=== PATIENT | male | born 1990 | race African-American/Black ===

== ENCOUNTER 2018-07-29 22:46 | Emergency (ER) | payer SELFPAY ==
--- NOTE | 2018-07-29 23:28 | ER ---
Nurse's Notes [facility] Name: Rigoberto Barker III Age: 28 yrs Sex: Male : 1990 Arrival Date: 07/29/2018 Time: 22:51 Bed 16 Private MD: None, None Diagnosis: Localized swelling, mass and lump of skin and subcutaneous tissue-Left inner thigh Presentation: 07/29 22:59 Presenting complaint: Patient states: Abscess to left inner thigh that has grown since lp1 3 months ago; States pain when touched; Denies any fever. Transition of care: patient was not received from another setting of care. Onset of symptoms was July 29, 2018. Risk Assessment: Do you want to hurt yourself or someone else? Patient reports no desire to harm self or others. Initial Sepsis Screen: Does the patient meet any 2 criteria? No. Patient's initial sepsis screen is negative. Does the patient have a suspected source of infection? No. Patient's initial sepsis screen is negative. Care prior to arrival: None. 22:59 Method Of Arrival: Ambulatory lp1 22:59 Acuity: CARI 4 lp1 Triage Assessment: 23:00 General: Appears in no apparent distress. Behavior is calm, cooperative, appropriate rr5 for age. 23:00 Pain: Denies pain. cc3 Historical: - Allergies: 23:00 Avocados; lp1 - Home Meds: 23:00 None [Active]; lp1 - PMHx: 23:00 None; lp1 - PSHx: 23:00 None; lp1 - Immunization history:: Adult Immunizations up to date. - Social history:: Smoking status: Patient/guardian denies using tobacco. - Ebola Screening: : No symptoms or risks identified at this time. Screenin:00 Abuse screen: Denies threats or abuse. Denies injuries from another. Nutritional lp1 screening: No deficits noted. Tuberculosis screening: No symptoms or risk factors identified. Fall Risk None identified. Assessment: 23:00 General: Appears in no apparent distress. uncomfortable, Behavior is calm, cooperative, rr5 appropriate for age. 23:00 Pain: Complains of pain in left inner thigh Pain does not radiate. Pain currently is 3 rr5 out of 10 on a pain scale. Quality of pain is described as aching, Pain began gradually, Is intermittent. Neuro: Level of Consciousness is awake, alert, obeys commands, Oriented to person, place, time, situation. Cardiovascular: Capillary refill < 3 seconds Patient's skin is warm and dry. Respiratory: Airway is patent Respiratory effort is even, unlabored, Respiratory pattern is regular, symmetrical. GI: Abdomen is flat. : No signs and/or symptoms were reported regarding the genitourinary system. EENT: No signs and/or symptoms were reported regarding the EENT system. Derm: Wound noted abscess inner thigh. Musculoskeletal: Capillary refill < 3 seconds, Range of motion: intact in all extremities. 23:50 Reassessment: Patient appears in no apparent distress at this time. Patient and/or rr5 family updated on plan of care and expected duration. Pain level reassessed. discharge instruction and prescription given and explained by gabriela RONDON without complaints made. Vital Signs: 23:00 BP 123 / 69; Pulse 59; Resp 16; Temp 97.8(O); Pulse Ox 100% on R/A; Weight 90.72 kg; lp1 Height 6 ft. 3 in. (190.50 cm); Pain 3/10; 23:00 Body Mass Index 25.00 (90.72 kg, 190.50 cm) lp1 ED Course: 22:51 Patient arrived in ED. mr 22:51 None, None is Private Physician. mr 23:00 Triage completed. lp1 23:00 Arm band placed on left wrist. lp1 23:00 Patient has correct armband on for positive identification. Bed in low position. Call rr5 light in reach. 23:08 Mich Devlin PA is [facility]. cp 23:08 Rio Villarreal MD is Attending Physician. cp 23:18 Gabriela Lui is Primary Nurse. cc3 23:27 Miguel Murillo MD is Referral Physician. cp 23:50 No provider procedures requiring assistance completed. Patient did not have IV access rr5 during this emergency room visit. Administered Medications: No medications were administered Outcome: 23:27 Discharge ordered by . cp 23:50 Discharged to home ambulatory. rr5 23:50 Condition: stable 23:50 Discharge instructions given to patient, Instructed on discharge instructions, follow up and referral plans. medication usage, Demonstrated understanding of instructions, follow-up care, medications, Prescriptions given X 23:56 Patient left the ED. cc3 Signatures: Iris OseiaPita, RN RN lp1 Mich Devlin PA PA cp Cordel, Charlene cc3 Miguel Ángel Guevara RN RN rr5 Corrections: (The following items were deleted from the chart) 07/30 05:45 07/29 23:00 Pain: Denies pain. rr5 rr5
--- NOTE | 2018-07-29 23:28 | EDPHYS ---
Physician Documentation [facility] Name: Rigoberto Barker III Age: 28 yrs Sex: Male : 1990 Arrival Date: 07/29/2018 Time: 22:51 Bed 16 Private MD: None, None ED Physician Rio Villarreal HPI: 07/29 23:15 This 28 yrs old Black Male presents to ER via Ambulatory with complaints of Abscess. cp 23:15 mass. Description: raised. Onset: The symptoms/episode began/occurred at an unknown cp time. has enlarged over past 3 months. Associated signs and symptoms: Pertinent negatives: discharge, drainage, fever. Historical: - Allergies: 23:00 Avocados; lp1 - Home Meds: 23:00 None [Active]; lp1 - PMHx: 23:00 None; lp1 - PSHx: 23:00 None; lp1 - Immunization history:: Adult Immunizations up to date. - Social history:: Smoking status: Patient/guardian denies using tobacco. - Ebola Screening: : No symptoms or risks identified at this time. ROS: 23:18 Constitutional: Negative for body aches, chills, fever, poor PO intake, weight loss. cp 23:18 Eyes: Negative for injury, pain, redness, and discharge. cp 23:18 Cardiovascular: Negative for chest pain, palpitations. 23:18 Respiratory: Negative for cough, shortness of breath, wheezing. 23:18 Skin: Positive for of the inner aspect left thigh, mass. 23:18 All other systems are negative. Exam: 23:22 Constitutional: The patient appears in no acute distress, alert, awake, well developed, cp well nourished, anxious. 23:22 Head/Face: Normocephalic, atraumatic. cp 23:22 Eyes: Periorbital structures: appear normal, Conjunctiva: normal, no exudate, no injection, Lids and lashes: appear normal, bilaterally. 23:22 ENT: External ear(s): are unremarkable, Nose: is normal, Mouth: is normal. 23:22 Chest/axilla: Inspection: normal. 23:22 Cardiovascular: Rate: normal. 23:22 Respiratory: the patient does not display signs of respiratory distress, Respirations: normal. 23:22 Skin: lesion(s), noted, and can be described as raised, tender, flesh colored, located on the inner aspect left thigh. Vital Signs: 23:00 BP 123 / 69; Pulse 59; Resp 16; Temp 97.8(O); Pulse Ox 100% on R/A; Weight 90.72 kg; lp1 Height 6 ft. 3 in. (190.50 cm); Pain 3/10; 23:00 Body Mass Index 25.00 (90.72 kg, 190.50 cm) lp1 MDM: 23:08 Patient medically screened. cp 23:25 Differential diagnosis: abscess, cellulitis, insect bite, skin carcinoma, nevus. cp 23:27 Data reviewed: vital signs, nurses notes, and as a result, I will discharge patient. 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 Administered Medications: No medications were administered Disposition: 07/29/18 23:27 Discharged to Home. Impression: Localized swelling, mass and lump of skin and subcutaneous tissue - Left inner thigh. - Condition is Stable. - Discharge Instructions: Excision of Skin Lesions, Skin Biopsy. - Medication Reconciliation Form, Thank You Letter, Antibiotic Education, Prescription Opioid Use form. - Follow up: Miguel Murillo MD; When: 1 - 2 days; Reason: Recheck today's complaints. - Problem is new. - Symptoms are unchanged. Signatures: Pita Lara RN RN lp1 Mich Devlin PA PA cp Gabriela Lui cc3 Corrections: (The following items were deleted from the chart) 23:56 23:27 07/29/2018 23:27 Discharged to Home. Impression: Localized swelling, mass and cc3 lump of skin and subcutaneous tissue - Left inner thigh. Condition is Stable. Forms are Medication Reconciliation Form, Thank You Letter, Antibiotic Education, Prescription Opioid Use. Follow up: Miguel Murillo; When: 1 - 2 days; Reason: Recheck today's complaints. Problem is new. Symptoms are unchanged. cp
[2018-07-30 00:55] VITALS: BP 123/69; TEMP 97.8; O2SAT 100
== END 2018-07-29 23:56 | disposition home or self-care (01) ==
LOC: ER 22:46
DX: R22.42 Localized swelling, mass and lump, left lower limb (principal)
CPT/HCPCS: 99282